=== PATIENT | female | born 1945 ===

== ENCOUNTER 2019-05-29 23:29 | Inpatient (IN) ==
[2019-05-29] MEDS ORDERED: methylPREDNISolone 125 MG/2 ML VIAL IVP ONE (23:38)
[2019-05-29] MEDS ORDERED: Ipratropium/Albuterol Neb 3 ML IH ONE (23:38)
[2019-05-30 00:04] LABS: Basophils # 0.1 K/mcL (0.0-0.2); Basophils % 0.4 %; Eosinophils % 0.1 %; Hemoglobin 12.1 g/dL (11.5-15.4); Immature Granulocytes % 1.2 % (0-4); Lymphocytes # 0.5 K/mcL (0.6-4.6); Lymphocytes % 3.7 %; Mean Corpuscular HGB Conc 30.3 g/dL (31.6-35.5); Mean Corpuscular Hemoglobin 29.2 pg (28.0-33.3); Mean Corpuscular Volume 96.6 fL (83.0-100.0); Mean Platelet Volume 10.3 fL (9.4-12.4); Monocytes # 1.3 K/mcL (0.0-1.3); Monocytes % 9.6 %; Neutrophils # 11.4 K/mcL (1.6-8.9); Platelet Count 195 K/mcL (140-400); Red Blood Count 4.14 M/mcL (3.82-4.97); Red Cell Distribution Width 15.9 % (11.5-14.5)
[2019-05-30 00:09] LABS: White Blood Count 13.4 K/mcL (4.3-11.1)
[2019-05-30 00:27] LABS: Albumin 3.5 g/dL (3.5-5.7); Bilirubin,Total 0.5 mg/dL (0.3-1.0); Calcium 8.2 mg/dL (8.6-10.3); Globulin 3.5 g/dL (2.4-3.5); Potassium 3.8 mEq/L (3.5-5.1)
[2019-05-30 00:28] LABS: INR 1.2; Prothrombin Time 13.6 Seconds (9.4-12.1)
[2019-05-30 00:31] LABS: Activated Partial Thrombo Time 39.5 Seconds (26.0-36.0)
[2019-05-30 00:36] LABS: Troponin I 0.11 ng/mL (< 0.04)
[2019-05-30] MEDS ORDERED: Azithromycin 500 MG in 0.9 % Sodium Chloride 250 ML IVPB ONE (01:27)
[2019-05-30] MEDS ORDERED: Ondansetron 4 MG/2 ML VIAL IVP PRN (04:50)
[2019-05-30] MEDS ORDERED: *HR* Dextrose 50 % in Water (Syg) 50 ML SYRINGE IVP PRN (05:22)
[2019-05-30] MEDS ORDERED: Dextrose Gel 15 GM/37.5 ML TUBE PO PRN ×2 (05:22)
[2019-05-30] MEDS ORDERED: levoFLOXacin 750 MG/150 ML 750 MG/150 ML BAG IVPB ONE (06:00)
[2019-05-30] MEDS: *HR* Heparin 5,000 UNIT/ML VIAL SQ SCH ×3 (06:34→21:47)
[2019-05-30] MEDS ORDERED: 0.9 % Sodium Chloride 250 ML IVC PRN (07:06)
[2019-05-30] MEDS ORDERED: 0.9 % Sodium Chloride 1,000 ML PRIME SCH (07:15)
[2019-05-30 08:14] LABS: Hepatitis B Surface Antibody 65.01 mIU/mL
[2019-05-30 08:25] LABS: Hepatitis B Surface Antigen Nonreactive (Nonreactive)
[2019-05-30] MEDS: Ipratropium/Albuterol Neb 3 ML IH SCH ×6 (09:54→22:59)
[2019-05-30] MEDS: Insulin LISPRO 300 UNITS/3 ML VIAL SQ SCH ×4 (10:06→21:48)
[2019-05-30] MEDS: Acetaminophen 325 MG TABLET PO PRN (21:47)
[2019-05-30 22:24] LABS: ABG Base Excess 3 mEq/L (-2 to 3); ABG HCO3 31 mEq/L (21-27); ABG Oxygen Saturation 88 % (95-98); ABG PCO2 59 mmHg (35-45); ABG PH 7.33 pH Units (7.32-7.45); ABG PO2 60 mmHg (85-104); ABG TCO2 33 mEq/L (20-26)
[2019-05-31] MEDS: Ipratropium/Albuterol Neb 3 ML IH SCH ×6 (03:16→23:59)
[2019-05-31] MEDS: *HR* Heparin 5,000 UNIT/ML VIAL SQ SCH ×3 (05:23→21:52)
[2019-05-31] MEDS: Insulin LISPRO 300 UNITS/3 ML VIAL SQ SCH ×4 (08:04→21:52)
[2019-05-31] MEDS: levoFLOXacin 500 MG/100 ML 500 MG/100 ML BAG IVPB SCH (09:05)
[2019-05-31 10:38] LABS: Basophils % 0.1 %; Hematocrit 38.9 % (35.3-44.9); Hemoglobin 11.8 g/dL (11.5-15.4); Immature Granulocytes % 0.9 % (0-4); Lymphocytes # 0.3 K/mcL (0.6-4.6); Lymphocytes % 2.8 %; Mean Corpuscular HGB Conc 30.3 g/dL (31.6-35.5); Mean Corpuscular Hemoglobin 29.2 pg (28.0-33.3); Mean Corpuscular Volume 96.3 fL (83.0-100.0); Mean Platelet Volume 10.9 fL (9.4-12.4); Monocytes # 1.3 K/mcL (0.0-1.3); Monocytes % 10.9 %; Neutrophils # 10.3 K/mcL (1.6-8.9); Platelet Count 212 K/mcL (140-400); Red Blood Count 4.04 M/mcL (3.82-4.97); Red Cell Distribution Width 15.9 % (11.5-14.5); Segmented Neutrophils % 85.3 %; White Blood Count 12.1 K/mcL (4.3-11.1)
[2019-05-31 10:41] LABS: Calcium 8.2 mg/dL (8.6-10.3); Potassium 3.5 mEq/L (3.5-5.1)
[2019-05-31] MEDS ORDERED: Sucralfate 1 GM TABLET PO SCH (15:00)
[2019-05-31] MEDS: *HR* LORazepam 0.5 MG TABLET PO PRN ×2 (15:24→21:52)
[2019-05-31] MEDS: Sucralfate 1 GM TABLET PO SCH (16:53)
[2019-05-31] MEDS: Budesonide/Formoterol 160/4.5 1 PUFF INH IH SCH (19:43)
[2019-06-01] MEDS: Ipratropium/Albuterol Neb 3 ML IH SCH ×6 (03:58→23:01)
[2019-06-01] MEDS: *HR* Heparin 5,000 UNIT/ML VIAL SQ SCH ×3 (05:52→20:37)
[2019-06-01] MEDS ORDERED: levoFLOXacin 500 MG/100 ML 500 MG/100 ML BAG IVPB SCH (06:00)
[2019-06-01] MEDS ORDERED: 0.9 % Sodium Chloride 250 ML IVC PRN (06:03)
[2019-06-01] MEDS: Budesonide/Formoterol 160/4.5 1 PUFF INH IH SCH ×2 (07:55→20:02)
[2019-06-01 08:02] LABS: Basophils % 0.1 %; Hematocrit 36.2 % (35.3-44.9); Hemoglobin 10.8 g/dL (11.5-15.4); Immature Granulocytes % 0.7 % (0-4); Lymphocytes # 0.3 K/mcL (0.6-4.6); Mean Corpuscular HGB Conc 29.8 g/dL (31.6-35.5); Mean Corpuscular Hemoglobin 29.8 pg (28.0-33.3); Mean Corpuscular Volume 99.7 fL (83.0-100.0); Mean Platelet Volume 10.4 fL (9.4-12.4); Monocytes # 1.5 K/mcL (0.0-1.3); Monocytes % 9.6 %; Neutrophils # 13.3 K/mcL (1.6-8.9); Platelet Count 196 K/mcL (140-400); Red Blood Count 3.63 M/mcL (3.82-4.97); Red Cell Distribution Width 15.9 % (11.5-14.5); Segmented Neutrophils % 87.6 %; White Blood Count 15.2 K/mcL (4.3-11.1)
[2019-06-01 08:20] LABS: Calcium 8.3 mg/dL (8.6-10.3); Potassium 4.1 mEq/L (3.5-5.1)
[2019-06-01] MEDS: Sucralfate 1 GM TABLET PO SCH ×3 (08:41→16:42)
[2019-06-01] MEDS: Renal Vitamin 1 CAP CAPSULE PO SCH (08:41)
[2019-06-01] MEDS: Insulin LISPRO 300 UNITS/3 ML VIAL SQ SCH ×4 (08:41→20:38)
[2019-06-01] MEDS: Venlafaxine XR (24 HR) 75 MG CAP.ER.24H PO SCH (08:41)
[2019-06-01] MEDS: ARIPiprazole 10 MG TABLET PO SCH (08:41)
[2019-06-01] MEDS: *HR* LORazepam 0.5 MG TABLET PO PRN ×2 (08:48→17:56)
[2019-06-01] MEDS: Metoprolol XL (24 HR) Succ 50 MG TAB.ER.24H PO SCH (13:24)
[2019-06-02] MEDS: Acetaminophen 325 MG TABLET PO PRN (00:14)
[2019-06-02] MEDS: Ipratropium/Albuterol Neb 3 ML IH SCH ×6 (05:02→23:23)
[2019-06-02] MEDS: *HR* Heparin 5,000 UNIT/ML VIAL SQ SCH ×3 (06:36→20:09)
[2019-06-02 07:09] LABS: Basophils % 0.1 %; Eosinophils # 0.1 K/mcL (0.0-0.6); Eosinophils % 0.5 %; Hematocrit 35.9 % (35.3-44.9); Hemoglobin 10.9 g/dL (11.5-15.4); Immature Granulocytes % 0.7 % (0-4); Lymphocytes # 0.6 K/mcL (0.6-4.6); Lymphocytes % 4.1 %; Mean Corpuscular HGB Conc 30.4 g/dL (31.6-35.5); Mean Corpuscular Hemoglobin 29.7 pg (28.0-33.3); Mean Corpuscular Volume 97.8 fL (83.0-100.0); Mean Platelet Volume 10.8 fL (9.4-12.4); Monocytes # 1.5 K/mcL (0.0-1.3); Monocytes % 9.8 %; Neutrophils # 12.8 K/mcL (1.6-8.9); Platelet Count 210 K/mcL (140-400); Red Blood Count 3.67 M/mcL (3.82-4.97); Red Cell Distribution Width 15.8 % (11.5-14.5); Segmented Neutrophils % 84.8 %; White Blood Count 15.1 K/mcL (4.3-11.1)
[2019-06-02] MEDS: Budesonide/Formoterol 160/4.5 1 PUFF INH IH SCH ×2 (07:29→20:07)
[2019-06-02] MEDS: Insulin LISPRO 300 UNITS/3 ML VIAL SQ SCH ×4 (08:23→20:05)
[2019-06-02] MEDS: Sucralfate 1 GM TABLET PO SCH ×3 (08:28→17:22)
[2019-06-02] MEDS: Venlafaxine XR (24 HR) 75 MG CAP.ER.24H PO SCH (08:28)
[2019-06-02] MEDS: Renal Vitamin 1 CAP CAPSULE PO SCH (08:28)
[2019-06-02] MEDS: Metoprolol XL (24 HR) Succ 50 MG TAB.ER.24H PO SCH (08:28)
[2019-06-02] MEDS: ARIPiprazole 10 MG TABLET PO SCH (08:28)
[2019-06-02] MEDS: levoFLOXacin 500 MG/100 ML 500 MG/100 ML BAG IVPB SCH (08:29)
[2019-06-02 10:29] LABS: Calcium 8.5 mg/dL (8.6-10.3); Potassium 4.2 mEq/L (3.5-5.1)
[2019-06-02] MEDS: *HR* LORazepam 0.5 MG TABLET PO PRN ×2 (13:57→20:09)
[2019-06-03] MEDS: Ipratropium/Albuterol Neb 3 ML IH SCH ×6 (03:11→23:21)
[2019-06-03] MEDS: *HR* LORazepam 0.5 MG TABLET PO PRN (03:37)
[2019-06-03] MEDS: *HR* Heparin 5,000 UNIT/ML VIAL SQ SCH ×3 (06:55→21:10)
[2019-06-03] MEDS: Budesonide/Formoterol 160/4.5 1 PUFF INH IH SCH ×2 (07:26→19:45)
[2019-06-03 07:37] LABS: Basophils % 0.2 %; Hematocrit 37.4 % (35.3-44.9); Hemoglobin 11.1 g/dL (11.5-15.4); Immature Granulocytes % 0.7 % (0-4); Lymphocytes # 0.4 K/mcL (0.6-4.6); Lymphocytes % 1.8 %; Mean Corpuscular HGB Conc 29.7 g/dL (31.6-35.5); Mean Corpuscular Hemoglobin 29.8 pg (28.0-33.3); Mean Corpuscular Volume 100.5 fL (83.0-100.0); Mean Platelet Volume 10.8 fL (9.4-12.4); Monocytes # 1.5 K/mcL (0.0-1.3); Monocytes % 7.5 %; Platelet Count 205 K/mcL (140-400); Red Blood Count 3.72 M/mcL (3.82-4.97); Red Cell Distribution Width 15.5 % (11.5-14.5); Segmented Neutrophils % 89.8 %
[2019-06-03] MEDS: Insulin LISPRO 300 UNITS/3 ML VIAL SQ SCH ×4 (08:05→20:37)
[2019-06-03 09:23] LABS: Ferritin > 1500 ng/mL (10-120); Folate > 22.3 ng/mL (3.0-16.0); Vitamin B12 1081 pg/mL (250-1100)
[2019-06-03] MEDS: ARIPiprazole 10 MG TABLET PO SCH (09:35)
[2019-06-03] MEDS: Sucralfate 1 GM TABLET PO SCH ×3 (09:35→16:55)
[2019-06-03] MEDS: Metoprolol XL (24 HR) Succ 50 MG TAB.ER.24H PO SCH (09:35)
[2019-06-03] MEDS: Renal Vitamin 1 CAP CAPSULE PO SCH (09:35)
[2019-06-03] MEDS: Venlafaxine XR (24 HR) 75 MG CAP.ER.24H PO SCH (09:35)
[2019-06-03] MEDS: Acetaminophen 325 MG TABLET PO PRN ×2 (09:36→21:09)
[2019-06-03 10:07] LABS: BUN/Creatinine Ratio 12 (6-26); Blood Urea Nitrogen 51 mg/dL (8-23); Calcium 8.9 mg/dL (8.6-10.3); Carbon Dioxide 22 mEq/L (23-29); Chloride 93 mEq/L (98-107); Glucose 133 mg/dL (70-105); Iron 25 mcg/dL (50-170); Magnesium 1.9 mg/dL (1.6-2.6); Osmolality,Calculated 292 (280-300); Potassium 4.4 mEq/L (3.5-5.1); Sodium 133 mEq/L (136-145); Transferrin < 75 mg/dL (203-362); eGFR For African Americans 12 (> 60); eGFR For Non-African Americans 10 (> 60)
[2019-06-03] MEDS ORDERED: Doxycycline 100 MG in 0.9 % Sodium Chloride Mini Bag 100 ML IVPB SCH (12:45)
[2019-06-03] MEDS ORDERED: Vancomycin 1 EACH in 0.9 % Sodium Chloride 250 ML IVPB SCH (18:00)
[2019-06-03 18:22] LABS: VBG HCO3 26 mEq/L (21-27); VBG PCO2 54 mmHg (41-51); VBG PO2 214 mmHg (25-50)
[2019-06-03 19:42] LABS: ABG Base Excess 0 mEq/L (-2 to 3); ABG HCO3 29 mEq/L (21-27); ABG Oxygen Saturation 96 % (95-98); ABG PCO2 67 mmHg (35-45); ABG PH 7.24 pH Units (7.32-7.45); ABG PO2 97 mmHg (85-104); ABG TCO2 31 mEq/L (20-26); Blood Gas Modality BiLevel
[2019-06-03] MEDS: Sennosides/Docusate Sodium TABLET PO SCH ×2 (20:37→21:10)
[2019-06-04] MEDS: Doxycycline 100 MG in 0.9 % Sodium Chloride Mini Bag 100 ML IVPB SCH ×2 (00:42→17:41)
[2019-06-04] MEDS: Ipratropium/Albuterol Neb 3 ML IH SCH ×6 (03:52→23:16)
[2019-06-04] MEDS: *HR* Heparin 5,000 UNIT/ML VIAL SQ SCH ×3 (05:02→20:32)
[2019-06-04 06:56] LABS: Basophils % 0.3 %; Eosinophils # 0.1 K/mcL (0.0-0.6); Eosinophils % 0.8 %; Hematocrit 36.9 % (35.3-44.9); Immature Granulocytes % 1.3 % (0-4); Lymphocytes # 0.6 K/mcL (0.6-4.6); Mean Corpuscular HGB Conc 29.8 g/dL (31.6-35.5); Mean Corpuscular Hemoglobin 29.4 pg (28.0-33.3); Mean Corpuscular Volume 98.7 fL (83.0-100.0); Mean Platelet Volume 10.4 fL (9.4-12.4); Monocytes % 6.5 %; Neutrophils # 13.7 K/mcL (1.6-8.9); Platelet Count 198 K/mcL (140-400); Red Blood Count 3.74 M/mcL (3.82-4.97); Red Cell Distribution Width 15.5 % (11.5-14.5); Segmented Neutrophils % 87.1 %; White Blood Count 15.7 K/mcL (4.3-11.1)
[2019-06-04 07:15] LABS: Calcium 8.6 mg/dL (8.6-10.3); Potassium 4.7 mEq/L (3.5-5.1)
[2019-06-04] MEDS ORDERED: 0.9 % Sodium Chloride 250 ML IVC PRN (07:49)
[2019-06-04] MEDS ORDERED: *HR* Heparin 10,000 UNIT/10 ML VIAL IV PRN (07:49)
[2019-06-04] MEDS: Budesonide/Formoterol 160/4.5 1 PUFF INH IH SCH ×2 (07:54→19:45)
[2019-06-04] MEDS ORDERED: 0.9 % Sodium Chloride 1,000 ML PRIME SCH (08:00)
[2019-06-04] MEDS: Insulin LISPRO 300 UNITS/3 ML VIAL SQ SCH ×4 (08:22→20:39)
[2019-06-04] MEDS: Sucralfate 1 GM TABLET PO SCH ×3 (08:24→17:41)
[2019-06-04] MEDS: ARIPiprazole 10 MG TABLET PO SCH (08:24)
[2019-06-04] MEDS: Renal Vitamin 1 CAP CAPSULE PO SCH (08:24)
[2019-06-04] MEDS: Venlafaxine XR (24 HR) 75 MG CAP.ER.24H PO SCH (08:25)
[2019-06-04] MEDS: Sennosides/Docusate Sodium TABLET PO SCH ×2 (08:25→20:30)
[2019-06-04] MEDS: levoFLOXacin 500 MG/100 ML 500 MG/100 ML BAG IVPB SCH (08:25)
[2019-06-04] MEDS ORDERED: Albumin 25% 25gram/100mL 25 GM/100 ML IV.SOLN IVPB ONE (12:10)
[2019-06-04] MEDS ORDERED: Albumin 25% 25gram/100mL 25 GM/100 ML IV.SOLN ONE (13:02)
[2019-06-04] MEDS ORDERED: Vancomycin 500 MG in 0.9 % Sodium Chloride Mini Bag 100 ML IVPB ONE (15:00)
[2019-06-04] MEDS: Acetaminophen 325 MG TABLET PO PRN (20:31)
[2019-06-05] MEDS: Ipratropium/Albuterol Neb 3 ML IH SCH (03:21)
[2019-06-05] MEDS: Levalbuterol Neb 1.25 MG/3 ML IH SCH ×4 (04:12→20:40)
[2019-06-05] MEDS: *HR* Heparin 5,000 UNIT/ML VIAL SQ SCH ×3 (06:10→21:07)
[2019-06-05 06:53] LABS: Hematocrit 34.9 % (35.3-44.9); Hemoglobin 10.4 g/dL (11.5-15.4); Mean Corpuscular HGB Conc 29.8 g/dL (31.6-35.5); Mean Corpuscular Hemoglobin 29.5 pg (28.0-33.3); Mean Corpuscular Volume 98.9 fL (83.0-100.0); Mean Platelet Volume 10.3 fL (9.4-12.4); Platelet Count 182 K/mcL (140-400); Red Blood Count 3.53 M/mcL (3.82-4.97); Red Cell Distribution Width 15.8 % (11.5-14.5); White Blood Count 11.7 K/mcL (4.3-11.1)
[2019-06-05 07:14] LABS: Calcium 8.7 mg/dL (8.6-10.3); Magnesium 1.8 mg/dL (1.6-2.6); Phosphorous 2.9 mg/dL (2.7-4.5); Potassium 4.1 mEq/L (3.5-5.1)
[2019-06-05] MEDS ORDERED: *HR* Heparin 10,000 UNIT/10 ML VIAL IV PRN (07:34)
[2019-06-05] MEDS ORDERED: 0.9 % Sodium Chloride 250 ML IVC PRN (07:34)
[2019-06-05] MEDS: Renal Vitamin 1 CAP CAPSULE PO SCH (08:13)
[2019-06-05] MEDS: ARIPiprazole 10 MG TABLET PO SCH (08:13)
[2019-06-05] MEDS: Sucralfate 1 GM TABLET PO SCH ×3 (08:13→16:36)
[2019-06-05] MEDS: Insulin LISPRO 300 UNITS/3 ML VIAL SQ SCH ×4 (08:13→21:08)
[2019-06-05] MEDS: Venlafaxine XR (24 HR) 75 MG CAP.ER.24H PO SCH (08:13)
[2019-06-05] MEDS: Metoprolol XL (24 HR) Succ 50 MG TAB.ER.24H PO SCH (08:14)
[2019-06-05] MEDS ORDERED: Acetaminophen IV 500 MG/50 ML INFUS..BTL IVPB ONE (09:07)
[2019-06-05] MEDS ORDERED: Aminoglycoside Consult 1 EACH MC ONE (09:10)
[2019-06-05] MEDS: Budesonide/Formoterol 160/4.5 1 PUFF INH IH SCH ×2 (10:12→20:40)
[2019-06-05] MEDS: Doxycycline 100 MG in 0.9 % Sodium Chloride Mini Bag 100 ML IVPB SCH ×2 (13:58)
[2019-06-05] MEDS: *HR* LORazepam 0.5 MG TABLET PO PRN (21:10)
[2019-06-06] MEDS: Doxycycline 100 MG in 0.9 % Sodium Chloride Mini Bag 100 ML IVPB SCH ×2 (01:48→12:11)
[2019-06-06] MEDS: Levalbuterol Neb 1.25 MG/3 ML IH SCH ×4 (03:52→22:50)
[2019-06-06 05:04] LABS: Hematocrit 36.7 % (35.3-44.9); Hemoglobin 10.7 g/dL (11.5-15.4); Mean Corpuscular HGB Conc 29.2 g/dL (31.6-35.5); Mean Corpuscular Hemoglobin 29.6 pg (28.0-33.3); Mean Corpuscular Volume 101.4 fL (83.0-100.0); Platelet Count 176 K/mcL (140-400); Red Blood Count 3.62 M/mcL (3.82-4.97); Red Cell Distribution Width 15.5 % (11.5-14.5); White Blood Count 11.2 K/mcL (4.3-11.1)
[2019-06-06 05:21] LABS: Calcium 8.4 mg/dL (8.6-10.3); Potassium 3.5 mEq/L (3.5-5.1)
[2019-06-06] MEDS: *HR* Heparin 5,000 UNIT/ML VIAL SQ SCH ×3 (06:56→21:19)
[2019-06-06] MEDS: ARIPiprazole 10 MG TABLET PO SCH (08:07)
[2019-06-06] MEDS: Metoprolol XL (24 HR) Succ 50 MG TAB.ER.24H PO SCH (08:07)
[2019-06-06] MEDS: Venlafaxine XR (24 HR) 75 MG CAP.ER.24H PO SCH (08:08)
[2019-06-06] MEDS: Renal Vitamin 1 CAP CAPSULE PO SCH (08:08)
[2019-06-06] MEDS: Insulin LISPRO 300 UNITS/3 ML VIAL SQ SCH ×4 (08:08→21:02)
[2019-06-06] MEDS: Sucralfate 1 GM TABLET PO SCH ×3 (08:08→15:19)
[2019-06-06] MEDS: Budesonide/Formoterol 160/4.5 1 PUFF INH IH SCH ×2 (09:31→22:50)
[2019-06-06] MEDS: *HR* LORazepam 0.5 MG TABLET PO PRN (16:14)
[2019-06-06 22:50] LABS: ABG Base Excess 4 mEq/L (-2 to 3); ABG HCO3 32 mEq/L (21-27); ABG Oxygen Saturation 88 % (95-98); ABG PCO2 68 mmHg (35-45); ABG PH 7.29 pH Units (7.32-7.45); ABG PO2 64 mmHg (85-104); ABG TCO2 34 mEq/L (20-26); Blood Gas Modality BiLevel; Blood Gas Pressure Support 6 cm H2O
[2019-06-07] MEDS: Doxycycline 100 MG in 0.9 % Sodium Chloride Mini Bag 100 ML IVPB SCH ×2 (01:04→13:11)
[2019-06-07] MEDS: Levalbuterol Neb 1.25 MG/3 ML IH SCH ×4 (04:19→21:43)
[2019-06-07] MEDS: *HR* Heparin 5,000 UNIT/ML VIAL SQ SCH ×3 (06:13→21:18)
[2019-06-07 07:20] LABS: Hematocrit 39.9 % (35.3-44.9); Hemoglobin 11.8 g/dL (11.5-15.4); Mean Corpuscular HGB Conc 29.6 g/dL (31.6-35.5); Mean Corpuscular Hemoglobin 29.4 pg (28.0-33.3); Mean Corpuscular Volume 99.5 fL (83.0-100.0); Mean Platelet Volume 10.4 fL (9.4-12.4); Platelet Count 168 K/mcL (140-400); Red Blood Count 4.01 M/mcL (3.82-4.97); Red Cell Distribution Width 15.7 % (11.5-14.5); White Blood Count 11.5 K/mcL (4.3-11.1)
[2019-06-07 07:59] LABS: Calcium 8.5 mg/dL (8.6-10.3); Potassium 4.1 mEq/L (3.5-5.1)
[2019-06-07] MEDS: Sucralfate 1 GM TABLET PO SCH ×3 (09:31→16:09)
[2019-06-07] MEDS: Metoprolol XL (24 HR) Succ 50 MG TAB.ER.24H PO SCH (09:31)
[2019-06-07] MEDS: Insulin LISPRO 300 UNITS/3 ML VIAL SQ SCH ×4 (09:31→21:17)
[2019-06-07] MEDS: Renal Vitamin 1 CAP CAPSULE PO SCH (09:31)
[2019-06-07] MEDS: ARIPiprazole 10 MG TABLET PO SCH (09:31)
[2019-06-07] MEDS: Venlafaxine XR (24 HR) 75 MG CAP.ER.24H PO SCH (09:31)
[2019-06-07] MEDS: *HR* LORazepam 0.5 MG TABLET PO PRN ×2 (09:32→21:43)
[2019-06-07] MEDS: Budesonide/Formoterol 160/4.5 1 PUFF INH IH SCH ×2 (10:55→21:43)
[2019-06-08] MEDS: Doxycycline 100 MG in 0.9 % Sodium Chloride Mini Bag 100 ML IVPB SCH ×2 (00:34→14:27)
[2019-06-08] MEDS: Levalbuterol Neb 1.25 MG/3 ML IH SCH ×4 (03:27→22:08)
[2019-06-08] MEDS: *HR* Heparin 5,000 UNIT/ML VIAL SQ SCH ×3 (06:11→21:00)
[2019-06-08 07:10] LABS: Calcium 8.4 mg/dL (8.6-10.3); Potassium 4.3 mEq/L (3.5-5.1)
[2019-06-08 08:08] LABS: Red Cell Distribution Width 15.6 % (11.5-14.5)
[2019-06-08 08:09] LABS: Hematocrit 39.2 % (35.3-44.9); Hemoglobin 11.8 g/dL (11.5-15.4); Mean Corpuscular HGB Conc 30.1 g/dL (31.6-35.5); Mean Corpuscular Hemoglobin 29.9 pg (28.0-33.3); Mean Corpuscular Volume 99.2 fL (83.0-100.0); Mean Platelet Volume 11.1 fL (9.4-12.4); Platelet Count 157 K/mcL (140-400); Red Blood Count 3.95 M/mcL (3.82-4.97); White Blood Count 12.9 K/mcL (4.3-11.1)
[2019-06-08] MEDS ORDERED: 0.9 % Sodium Chloride 250 ML IVC PRN (08:23)
[2019-06-08] MEDS ORDERED: *HR* Heparin 10,000 UNIT/10 ML VIAL IV PRN (08:23)
[2019-06-08] MEDS: ARIPiprazole 10 MG TABLET PO SCH (08:34)
[2019-06-08] MEDS: Venlafaxine XR (24 HR) 75 MG CAP.ER.24H PO SCH (08:34)
[2019-06-08] MEDS: Sucralfate 1 GM TABLET PO SCH ×3 (08:34→17:29)
[2019-06-08] MEDS: Metoprolol XL (24 HR) Succ 50 MG TAB.ER.24H PO SCH (08:34)
[2019-06-08] MEDS: Insulin LISPRO 300 UNITS/3 ML VIAL SQ SCH ×4 (08:35→20:50)
[2019-06-08] MEDS: Renal Vitamin 1 CAP CAPSULE PO SCH (08:38)
[2019-06-08] MEDS: *HR* LORazepam 0.5 MG TABLET PO PRN ×3 (08:50→20:51)
[2019-06-08] MEDS: Budesonide/Formoterol 160/4.5 1 PUFF INH IH SCH ×2 (10:40→22:08)
[2019-06-09] MEDS: Doxycycline 100 MG in 0.9 % Sodium Chloride Mini Bag 100 ML IVPB SCH (01:27)
[2019-06-09] MEDS: Levalbuterol Neb 1.25 MG/3 ML IH SCH ×2 (03:43→10:51)
[2019-06-09] MEDS: *HR* Heparin 5,000 UNIT/ML VIAL SQ SCH (05:51)
[2019-06-09 06:10] LABS: Hematocrit 34.3 % (35.3-44.9); Hemoglobin 10.4 g/dL (11.5-15.4); Mean Corpuscular HGB Conc 30.3 g/dL (31.6-35.5); Mean Corpuscular Hemoglobin 29.5 pg (28.0-33.3); Mean Corpuscular Volume 97.2 fL (83.0-100.0); Mean Platelet Volume 10.7 fL (9.4-12.4); Platelet Count 191 K/mcL (140-400); Red Blood Count 3.53 M/mcL (3.82-4.97); Red Cell Distribution Width 15.5 % (11.5-14.5); White Blood Count 13.9 K/mcL (4.3-11.1)
[2019-06-09 06:30] LABS: Calcium 8.3 mg/dL (8.6-10.3); Potassium 3.9 mEq/L (3.5-5.1)
[2019-06-09 07:18] VITALS: BP 120/56
[2019-06-09] MEDS: Renal Vitamin 1 CAP CAPSULE PO SCH (09:34)
[2019-06-09] MEDS: Venlafaxine XR (24 HR) 75 MG CAP.ER.24H PO SCH (09:34)
[2019-06-09] MEDS: Metoprolol XL (24 HR) Succ 50 MG TAB.ER.24H PO SCH (09:35)
[2019-06-09] MEDS: ARIPiprazole 10 MG TABLET PO SCH (09:35)
[2019-06-09] MEDS: Insulin LISPRO 300 UNITS/3 ML VIAL SQ SCH (09:35)
[2019-06-09] MEDS: Sucralfate 1 GM TABLET PO SCH ×2 (09:35→11:24)
[2019-06-09] MEDS: Budesonide/Formoterol 160/4.5 1 PUFF INH IH SCH (10:50)
[2019-06-09] MEDS: *HR* LORazepam 0.5 MG TABLET PO PRN (11:24)
== END 2019-06-09 12:11 | disposition hospice, inpatient (51) | DRG 871 ==
LOC: EMEROOARM 23:29 → CDU 23:29 → SUATTDRO 05-30 03:05 → CDU 05-30 04:15 → 2ANU 05-30 12:56 → SUATTDRO 05-31 14:21
PROVIDERS: ADMIT Internal Medicine; ATTEND Internal Medicine